=== PATIENT | female | born 1990 | race Caucasian/White ===

== ENCOUNTER 2021-10-20 13:40 | Emergency (ER) | payer OTHER ==
[~2021-10-20] VITALS: Ht 180.3 cm; Wt 130.0 kg
[2021-10-20 14:00] VITALS: BP 137/86
--- NOTE | 2021-10-20 14:09 | RAD ---
RIGHT FOOT AP LATERAL OBLIQUE Clinical Indication: Reason: right foot injury pain on top of foot / Spl. Instructions: / History: Comparison: None. Findings: There is no acute fracture or dislocation. The bony alignment is normal. Mineralization is normal. N o bony erosion. There is a tiny well-corticated ossific body at the tip of the lateral malleolus that could be due to old injury or accessory ossicle. There is no soft tissue abnormality. IMPRESSION: No acute fracture. Electronically signed by: Sudhir Gurrola MD (10/20/2021 2:06 PM) VANESSA
--- NOTE | 2021-10-20 14:21 | PHYS DOC ---
Adult General Chief Complaint Chief Complaint: FOOT INJURY PAIN [facility] HPI Patient is a healthy 30-year-old female presenting for right foot pain. Onset was 2 days ago, this patient states she was trying to break up a dog fight and ever since has had pain to her right midfoot. She has been taking ibuprofen with mild relief in pain. She has been ambulatory but ongoing pain brought her in for evaluation. She has no medical issues and takes no medications on a daily basis. No changes in motor or sensory or neuro function Review of Systems Review of Systems Fourteen body systems of review of systems have been reviewed. See HPI for pertinent positives and negative responses, other brice all other systems are negative, non-pertinent or non-contributory Physical Exam Physical Exam Constitutional: Well developed, well nourished, no acute distress, non-toxic appearance. HENT: Normocephalic, atraumatic, bilateral external ears normal, oropharynx moist, no oral exudates, nose normal. Eyes: PERRLA, EOMI, conjunctiva normal, no discharge. Neck: Normal range of motion, no tenderness, supple, no stridor. Cardiovascular: Heart rate regular per monitor Lungs & Thorax: No respiratory distress or accessory muscle use, bilateral chest rise Abdomen: Abdomen soft, non-tender, bowel sounds present in all quadrants, no guarding or rebound, nonacute abdomen. Skin: Warm, dry, no erythema, no rash. Back: No tenderness, no CVA tenderness. Extremities: Tenderness present to right foot navicular bone without any other abnormal findings to right knee, right peters, right ankle and right foot. No cyanosis, no clubbing, ROM intact, no edema. Neurologic: Alert and oriented X 3, 2+ DP and TP pulses to bilateral lower extremities, normal motor & sensory function, no focal deficits noted. Psychologic: Affect normal, judgement normal, mood normal. Current Patient Data Vital Signs Vital Signs Date Time Temp Pulse Resp B/P (MAP) Pulse Ox O2 Delivery O2 Flow Rate FiO2 10/20/21 14:00 98.1 78 14 137/86 (103) 98 Vital Signs Date Time Temp Pulse Resp B/P (MAP) Pulse Ox O2 Delivery O2 Flow Rate FiO2 10/20/21 14:00 98.1 78 14 137/86 (103) 98 EKG EKG [] Radiology/Procedures Radiology/Procedures RIGHT FOOT AP LATERAL OBLIQUE Clinical Indication: Reason: right foot injury pain on top of foot / Spl. Instructions: / History: Comparison: None. Findings: There is no acute fracture or dislocation. The bony alignment is normal. Mineralization is normal. No bony erosion. There is a tiny well-corticated ossific body at the tip of the lateral malleolus that could be due to old injury or accessory ossicle. There is no soft tissue abnormality. IMPRESSION: No acute fracture. Electronically signed by: Sudhir Gurrola MD (10/20/2021 2:06 PM) [id number] Heart Score C/O Chest Pain: No Risk Factors: Risk Factors: DM, Current or recent (<one month) smoker, HTN, HLP, family history of CAD, obesity. Risk Scores: Risk Factors: DM, Current or recent (<one month) smoker, HTN, HLP, family history of CAD, obesity. Course & Med Decision Making Course & Med Decision Making ABCs unremarkable HPI physical exam and radiograph of right lower extremity nonconcerning for any emergent or surgical issues I discussed most likely diagnosis of contusion versus hyperextension/flexion injury not requiring any further diagnostic work-up or need for hospitalization. Continued supportive care and close PCP follow-up for further diagnostic work- up and/or specialist consultation recommended [place] Disclaimer [place] Disclaimer This electronic medical record was generated, in whole or in part, using a voice recognition dictation system. Departure Departure: Impression: Primary Impression: Right foot pain Disposition: HOME / SELF CARE / HOMELESS Condition: STABLE Referrals: CONRAD LOPEZ (PCP) Additional Instructions: You have been evaluated in the Emergency Department today for foot pain. The x- ray of your foot and ankle did not show any acute bony abnormalities. You can alternate Tylenol and/or Motrin every 4-6 hours to help control your pain. Please also rest, ice, and elevate your ankle to control your pain. Please follow up with your primary care physician. Continued supportive care practices such as passive range of motion exercises, NSAIDs and/or Tylenol for pain control, ice, and compression are recommended Return to the Emergency Department if you experience worsening pain, numbness/tingling, change of color in your toes, or any other concerning symptoms. JENNIFER LOPEZ DO Oct 20, 2021 14:20
== END 2021-10-20 14:25 | disposition home or self-care (01) ==
LOC: ER 13:40
DX: M79.671 Pain in right foot (principal)
CPT/HCPCS: 73630; 99283